=== PATIENT | female | born 1950 | race Caucasian/White ===

== ENCOUNTER 2020-05-07 08:15 | Outpatient (CLI) | payer OTHER, SELFPAY ==
[2020-05-07 08:30] VITALS: BP 163/74; PULSE 85; RESP 15; TEMP 36.7; O2SAT 95; BMI 30.9
--- NOTE | 2020-05-07 08:33 | AMB.MCA ---
Patient Information Referred by: Lorena Symptom onset date: 04/29/20 COVID 19 common symptoms: positive fever(s), chills, cough and fatigue COVID 19 other sytmptoms: negative chest pressure, chest pain, pleuritic pain, requiring oxygen, requiring more oxygen, respiratory distress, cyanosis, lethargy, confusion or new neurological complaints Severity: moderate Treatment prior to arrival: none [facility] COVID test results: No Data to Display outside results available, scanned ([facility]) Criteria/Plan Inclusion/Exclusion Criteria weight >/= 40kg, + direct test </= 10 days ago and symptom onset </= 10 days ago age >/= 65 not requiring hospitalization, not requiring oxygen (if not chronically on oxygen) and no increase oxygen requirement (if chronically on oxygen) Patient education patient/caregiver received/reviewed fact sheet, Emergency Use Authorization/unapproved drug status discussed with patient/caregiver, alternatives to this treatment discussed with patient/caregiver, risks and benefits of medication reviewed with patient/caregiver, patient/caregiver given opportunity for questions, which were answered and patient/caregiver consents to receiving Monoclonal Antibody Treatment Plan for treatment Meets criteria for Monoclonal Antibody infusion Ordering Monoclonal Antibody infusion for today
[2020-05-07 09:40] VITALS: BP 136/82; PULSE 81; RESP 15; TEMP 36.7; O2SAT 99
[2020-05-07 10:06] VITALS: BP 149/93; PULSE 86; RESP 16; TEMP 36.7; O2SAT 97
[2020-05-07 11:16] VITALS: BP 126/86; PULSE 82; RESP 15; TEMP 36.8; O2SAT 97
[2020-05-07 11:20] VITALS: BP 149/93; PULSE 82; RESP 12; TEMP 36.8; O2SAT 97
--- NOTE | 2020-05-14 13:06 | DCPLANNER ---
Addendum entered by Faith Sy 05/19/20 15:04: instructional design manager called to check on patient after receiving the BAM infusion. Patient stated that she is doing good, she has not been admitted to a hospital anywhere. Original Note: instructional design manager had message that patient received the BAM infusion. instructional design manager called to check on patient after receiving the BAM infusion. Patient stated that she is doing well. Before the infusion patient stated that she had a headache, was very weak, slight fever, had a cough, and her chest hurt. After the infusion she was doing well, she is still a little weak, she is tired but she is feeling so much better.
== END 2020-05-07 11:21 | disposition home or self-care (01) ==
LOC: OPS 08:19
PROVIDERS: Family Provider Family Medicine; PCP Family Medicine; Visit Provider Family Medicine
DX: U07.1 COVID-19 (principal)
CPT/HCPCS: 96365; J7050